=== PATIENT | female | born 1985 | race Asian ===

== ENCOUNTER 2017-02-03 01:52 | Emergency (ER) | payer OTHER | END 2017-02-03 03:23 | disposition other institution (70) | LOC: ED 01:52 | DX: Z02.89 Encounter for other administrative examinations (principal); F31.9 Bipolar disorder, unspecified; F15.10 Other stimulant abuse, uncomplicated; Z91.419 Personal history of unspecified adult abuse ==

== ENCOUNTER 2017-02-03 22:01 | Emergency (ER) | payer OTHER, MEDICAID ==
[2017-02-04 05:48] VITALS: BP 111/71
== END 2017-02-04 05:48 | disposition home or self-care (01) ==
LOC: ED 22:01
DX: F15.10 Other stimulant abuse, uncomplicated (principal); M79.1 Myalgia
CPT/HCPCS: J1885; J2060